=== PATIENT | female | born 1985 | race Caucasian/White ===

== ENCOUNTER 2018-01-26 17:01 | Emergency (ER) | payer OTHER, MEDICAID ==
[~2018-01-26] VITALS: Ht 165.1 cm; Wt 77.1 kg
[~2018-01-26 17:01] MED LIST: CLARITIN10 MG PO; MACROBID 100 M100 M1 PO; ONDANSETRON HCL4 M2 PO; PRENATAL ONE T1 EACH PO; TRINATE TABLET1 TAB PO; ZOFRAN ODT4 MG PO
[2018-01-26] MEDS ORDERED: FLONASE 0.05%50 MCG NASAL (17:09)
[2018-01-26] MEDS ORDERED: ZYRTEC10 M5 PO (17:09)
[2018-01-26 18:16] LABS: HEMATOCRIT 35.8 % (37.0-47.0); HEMOGLOBIN 11.8 gm/dL (12.0-15.0); MCH 28.7 pg (26.0-34.0); MCHC 32.9 g/dL (28.0-37.0); MCV 87.2 fL (80.0-100.0); MPV 9.3 fl. (7.2-11.1); RBC 4.1 mil/uL (4.20-5.00); RDW-CV 13.8 % (10.5-14.5); WBC 5.9 thou/uL (4.0-11.0)
[2018-01-26 18:25] LABS: CALCIUM 9.1 mg/dL (8.5-10.1); CREATININE 0.6 mg/dL (0.6-1.3); POTASSIUM 3.5 mmol/L (3.5-5.1)
[2018-01-26] MEDS ORDERED: ANTIVERT25 MG PO (18:26)
[2018-01-26 18:42] VITALS: BP 104/62
--- NOTE | 2018-01-27 13:51 | EKG ---
[place] [address] ELECTROCARDIOGRAM REPORT Name: TIANNA MONK Room: [facility]#: [id number] Admission: 01/26/18 Attend Phys: Discharge: 01/26/18 Date of : 85 Report #: [id number] THIS REPORT FOR: //name// [facility] ED Test Date: 2018-01-26 Test Time: 17:06:18 Pat Name: TIANNA MONK Department: Room: Gender: F Software Developer Manager: ML : 1985 Requested By: Kumar Vaughn Order Number: [id number] Reading MD: Parish Bazan Measurements Intervals [place] Rate: 65 P: 62 IN: 166 QRS: -5 QRSD: 108 T: 14 QT: 426 QTc: 443 Interpretive Statements Sinus rhythm Probable left atrial enlargement Low voltage, precordial leads RSR' in V1 or V2, right VCD or RVH No previous ECG available for comparison Electronically Signed On 01-27-2018 13:51:16 CDT by Parish Bazan [email or web address] <ELECTRONICALLY SIGNED> By: Parish Bazan MD, [facility] 01/27/18 1351 1706 1706 Parish Bazan MD, [facility] /EPI
== END 2018-01-26 18:43 | disposition home or self-care (01) ==
LOC: M.ERS 17:01
PROVIDERS: Emergency Medicine Emergency Medical Services
DX: R42 Dizziness and giddiness (principal)